=== PATIENT | male | born 1980 | race Caucasian/White ===

== ENCOUNTER 2022-03-10 06:39 | Emergency (ER) | payer BC ==
[~2022-03-10] VITALS: Ht 200.7 cm; Wt 117.9 kg
[2022-03-10] MEDS ORDERED: LISINOPRIL10 MG PO (07:21)
== END 2022-03-10 07:40 | disposition home or self-care (01) ==
LOC: ED 06:39
DX: F41.0 Panic disorder [episodic paroxysmal anxiety] (principal); I10 Essential (primary) hypertension
CPT/HCPCS: 36415; 80053; 85025; 96374; 96375; 99283-25; A9270; J2060

== ENCOUNTER 2024-04-29 21:56 | Emergency (ER) | payer SELFPAY ==
[~2024-04-29] VITALS: Ht 200.7 cm; Wt 126.5 kg
[~2024-04-29 21:56] MED LIST: LISINOPRIL10 MG PO
[2024-04-29 22:43] LABS: BASOPHILS 0.2 % (0-2); HEMOGLOBIN 11.5 g/dL (12.0-18.0)
[2024-04-29 22:53] LABS: EOSINOPHILS 0.5 % (0-6); LYMPHOCYTES 15.9 % (24-44); MCH 33.3 (27-36); MCV 86.5 fl (81-99); MONOCYTES 10.5 % (0-12); NEUTROPHILS 72.9 % (39-80); PLATELET COUNT 380 K/uL (140-440); RBC 3.46 M/ul (4.3-5.7); RDW 12.2 (10.5-15.0)
[2024-04-29 22:55] LABS: ALBUMIN 3.7 g/dL (3.4-5.0); ALBUMIN/GLOBULIN RATIO 1.19 (1.1-2.4); ALCOHOL, MEDICAL <3 ng/dL (<3); ALKALINE PHOSPHATASE 185 U/L (46-116); ALT (SGPT) 37 U/L (14-59); ANION GAP 9.3 (7-21); AST (SGOT) 24 U/L (15-37); BILIRUBIN, TOTAL 0.5 ng/dL (0.2-1.0); BUN/CREATININE RATIO 20.37 (6.0-28.6); CALCIUM 8.5 mg/dL (8.5-10.1); CARBON DIOXIDE 27 mmol/L (21-32); CHLORIDE 69 mmol/L (98-107); CREATININE, SERUM 0.54 mg/dL (0.70-1.30); GLOMERULAR FILTRATION RATE,EST 126 mL/min (>60); POTASSIUM 3.3 mmol/L (3.5-5.1); PROTEIN, TOTAL 6.8 g/dL (6.4-8.2); UREA NITROGEN 11 mg/dL (7-18)
[2024-04-29] MEDS ORDERED: LORazepam 2 MG/ML VIAL ONE (23:42)
[2024-04-29 23:48] LABS: HEMATOCRIT 31.2 % (35.0-50.0)
[2024-04-29 23:49] LABS: MCHC 36.9 g/dl (30-36)
[2024-04-29] MEDS ORDERED: LORazepam 2 MG/ML VIAL IV ONE (23:58)
[2024-04-30] MEDS ORDERED: POTASSIUM CHLORIDE 10 MEQ/100 ML BAG IV SCH ×2 (00:45→04:00)
[2024-04-30] MEDS ORDERED: SODIUM CHLORIDE 0.9% 1,000 ML IV PRN (00:45)
[2024-04-30] MEDS ORDERED: Sodium Chloride 3% 100 ML IV SCH ×2 (00:45→06:15)
[2024-04-30] MEDS ORDERED: LIDOCAINE 2% VISCOUS 6 ML SYR TOP ONE (01:30)
[2024-04-30 01:55] LABS: BILIRUBIN, URINE NEGATIVE (negative); BLOOD/HGB, URINE NEGATIVE (Negative); KETONE, URINE NEGATIVE (Negative); LEUK ESTERASE, URINE NEGATIVE (negative); NITRITE, URINE NEGATIVE (negative)
[2024-04-30 02:15] LABS: BUN/CREATININE RATIO 23.91 (6.0-28.6); CALCIUM 8.4 mg/dL (8.5-10.1); CREATININE, SERUM 0.46 mg/dL (0.70-1.30)
[2024-04-30 02:17] LABS: AMPHETAMINES, URINE NEGATIVE (NEGATIVE); BARBITURATES, URINE NEGATIVE (NEGATIVE); BENZODIAZEPINE, URINE NEGATIVE (NEGATIVE); BUPRENORPHINE, URINE NEGATIVE (NEGATIVE); CANNABINOID, URINE NEGATIVE (NEGATIVE); COCAINE, URINE NEGATIVE (NEGATIVE); ECSTASY, URINE POSITIVE (NEGATIVE); FENTANYL, URINE NEGATIVE (NEGATIVE); METHADONE, URINE NEGATIVE (NEGATIVE); OPIATES, URINE NEGATIVE (NEGATIVE); OXYCODONE, URINE NEGATIVE (NEGATIVE); PHENCYCLIDINE, URINE NEGATIVE (NEGATIVE)
[2024-04-30 03:22] LABS: MAGNESIUM 1.1 mg/dL (1.8-2.4); TSH, 3RD GENERATION 1.957 uIU/mL (0.358-3.740)
[2024-04-30] MEDS ORDERED: MAGNESIUM SULFATE 2 GM/50 ML BAG IV ONE ×2 (04:45→06:45)
[2024-04-30 06:04] LABS: ANION GAP 11.8 (7-21); CALCIUM 7.8 mg/dL (8.5-10.1); CREATININE, SERUM 0.45 mg/dL (0.70-1.30); MAGNESIUM 1.7 mg/dL (1.8-2.4); POTASSIUM 2.8 mmol/L (3.5-5.1)
[2024-04-30] MEDS ORDERED: CALCIUM CHLORIDE 1,000 MG/10 ML SYR IV ONE (06:45)
[2024-04-30] MEDS ORDERED: POTASSIUM CHLORIDE 10 MEQ/100 ML BAG IV ONE (07:30)
[2024-04-30] MEDS ORDERED: LORazepam 2 MG/ML VIAL IV ONE (07:45)
[2024-04-30 08:20] VITALS: BP 115/69
[2024-04-30] MEDS ORDERED: TRAZODONE HCL150 MG PO (09:03)
[2024-04-30] MEDS ORDERED: HYDROCHLOROTH12.5 M1 PO (09:03)
[2024-04-30] MEDS ORDERED: PROPRANOLOL HCL40 MG PO (09:03)
[2024-04-30] MEDS ORDERED: POTASSIUM CHLO10 MEQ PO (09:03)
[2024-04-30] MEDS ORDERED: CLONIDINE1 EAC2 TD (09:03)
[2024-04-30] MEDS ORDERED: FUROSEMIDE20 MG PO (09:03)
[2024-04-30] MEDS ORDERED: DIVALPROEX SOD250 MG PO (09:03)
[2024-04-30] MEDS ORDERED: DESMOPRESSIN A0.1 MG PO (09:04)
[2024-05-01 13:22] LABS: OSMOLALITY 210 mOsm/kg (280-303)
[2024-05-01 14:01] LABS: URINE OSMOLALITY 536 mOsm/kg (50-800)
[2024-05-01 18:10] LABS: CORTISOL,SERUM 23.6 ug/dL (())
--- NOTE | 2024-05-02 11:29 | EKG ---
[facility] [address] [facility] [address] [place] [address] Signed Sinus bradycardia with 1st degree AV block Nonspecific intraventricular block Abnormal ECG No previous ECGs available Confirmed by ANA PAULA ROSAS MD ([id number]) on 05/02/2024 11:28:57 AM Electronically Signed By: ANA PAULA ROSAS 05/02/24 1129 PATIENT NAME: PATO MORELOS HENRI Electrocardiogram DATE OF : 78 PHYSICIAN: ANA PAULA ROSAS REPORT #: [id number] REPORT IS CONFIDENTIAL AND NOT TO BE RELEASED WITHOUT AUTHORIZATION
== END 2024-04-30 08:20 | disposition short-term general hospital (02) ==
LOC: ED 21:56
PROVIDERS: Family Medicine; Internal Medicine
DX: E87.1 Hypo-osmolality and hyponatremia (principal); R41.82 Altered mental status, unspecified; E87.6 Hypokalemia; E83.42 Hypomagnesemia; Z79.899 Other long term (current) drug therapy; Z66 Do not resuscitate
CPT/HCPCS: 36415; 51702; 70450; 70496; 70498; 71045; 80048; 80053; 80307; 81003; 82533; 83735; 83930; 83935; 84300; 84443; 84484; 85025; 93005; 93010; 96368; 99285-25; G0480; J2060; J3475; J3480; J7030; J7131; Q9967